=== PATIENT | male | born 1995 | race African-American/Black ===

== ENCOUNTER 2017-08-10 18:49 | Emergency (ER) | payer BC ==
[~2017-08-10] VITALS: Ht 188 cm; Wt 105.0 kg
[2017-08-10 18:50] VITALS: BP 124/72
== END 2017-08-10 20:35 | disposition home or self-care (01) ==
LOC: ED 20:01
DX: S16.1XXA Strain of muscle, fascia and tendon at neck level, initial encounter (principal); W01.198A Fall on same level from slipping, tripping and stumbling with subsequent striking against other object, initial encounter; Y93.89 Activity, other specified; Y92.89 Other specified places as the place of occurrence of the external cause; Y99.8 Other external cause status
CPT/HCPCS: 70450; 72125; 99284